=== PATIENT | male | born 1980 | race Caucasian/White ===

== ENCOUNTER 2017-05-08 01:31 | Emergency (ER) | payer SELFPAY ==
[2017-05-08] MEDS ORDERED: EPINEPHrine INJ 0.1 MG/ML 10 ML SYG IV ONE ×6 (01:39→02:33)
[2017-05-08] MEDS ORDERED: SUCCINYLCHOLINE CHLORIDE 200 MG/10 ML VIAL ONE (01:45)
[2017-05-08] MEDS ORDERED: SODIUM CHLORIDE 0.9% 1000ML 1,000 ML IVS ONE ×2 (01:50)
[2017-05-08] MEDS ORDERED: DOPamine PREMIX 250 ML IVPB ONE (01:50)
--- NOTE | 2017-05-08 01:56 | RAD ---
Clinical History : SOB , MAIN Exam : Portable AP view of the chest 05/08/2017 12:00 AM CDT Comparisons : none Findings : There is mild diffuse peribronchial thickening throughout the lungs bilaterally. There is no focal consolidation or pleural effusion.. The heart is normal in size. The mediastinal contours are normal in appearance. The thoracic spine is age appropriate. The shoulders are unremarkable. Limited evaluation of the upper abdomen demonstrates no gross abnormalities. Impression: Peribronchial thickening without focal consolidation, likely representing viral or atypical infectious process versus interstitial edema. Electronically signed by: Soham Olivas MD 05/08/2017 1:54 AM CDT
[2017-05-08] MEDS ORDERED: KETAMINE HCL 100 MG/ML VIAL IV ONE (02:00)
[2017-05-08] MEDS ORDERED: ETOMIDATE INJECTION 2 MG/ML 20ML VIAL IV ONE (02:00)
[2017-05-08] MEDS ORDERED: SODIUM BICARBONATE SYRINGE 50 MEQ/50 ML SYG IV ONE (02:06)
[2017-05-08] MEDS ORDERED: CALCIUM CHLORIDE INJ 100 MG/ML SYG IV ONE (02:07)
--- NOTE | 2017-05-08 03:32 | ED.PDOC ---
History of Present Illness - General Chief Complaint: Chest Pain/NE Stated Complaint: cardiac arrest Time Seen by Provider: 05/08/17 02:53 Source: EMS notes reviewed Exam Limitations: clinical condition - History of Present Illness Initial Comments: the patient is a 36-year-old male presenting to emergency room by EMS. 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 He was awake when EMS arrived. longterm employees reported something like a small seizure when he went down. The patient was pale and diaphoretic. He was flushed in his upper chest and neck. The patient Reported that he needed to go the bathroom. He was short of breath. He was taking a breath and holding it. he was not really complaining of chest pain. By the time the patient arrived here he was confused. His upper chest was red to purple in color but the rest of his body was white. There was no tracheal deviation. Breath sounds were symmetrical. Chest x-ray confirmed no pneumothorax or widening of the mediastinum. No evidence of any hemothorax. The patient did not exhibit any pain with palpation of the abdomen. quick scan with the ultrasound revealed no free fluid in the abdomen. I also saw no significant dilation of the aorta. of significant note, not very far into the second round of CPR it became very difficult to palpate pulses in the extremities and even in the femoral arteries. The patient went from what was a sinus tachycardia on the monitor is to PEA at which point CPR was started. chest x-ray was performed which showed inflated lungs ruling out pneumothorax. it also helped to rule out hemothorax. From the time the patient arrived we were unable to obtain a good pulse oximetry read as the patient's hands were pale and cold. he coded before an ABG to be performed. Respiratory bagged the patient until an endotracheal tube was placed. A 7.5 tube was placed under direct visualization by EMS. End- tidal CO2's were used to confirm placement. Auscultation was used to confirm placement. the patient was easy to ventilate. End-tidal CO2's remained in the 20s for the most part. We were never able to obtain oxygen saturations greater than 60% for any period of time. The patient received numerous rounds of epinephrine. He also received a round of sodium bicarbonate as well as around of calcium chloride empirically. We never did obtain a shockable rhythm. Around 30 minutes into the code I used the color Doppler on the ultrasound and had a very hard time finding arterial pulses during CPR in the femoral arteries. We were never able to obtain palpable pulses in the radials, dorsalis pedis or posterior tibial arteries after the patient coded the second time. Carotid arteries were very difficult to palpate under direct CPR. Initially, after the first 5 minutes of CPR, we did obtain a viable pulse and blood pressure. A dopamine drip was started at that time. Approximately 10 minutes later the patient went back into PEA and we never did obtain a viable pulse or blood pressure after that time. Even during that time when we did have a faintly palpable pulse in his upper extremities his oxygen saturations never went above 70%. After approximately 50 minutes of coding the patient without any sign of improvement, CPR was ceased. Carotid Doppler showed no carotid pulse. Direct visualization with ultrasound of the heart showed no coordinated cardiac motion. Cardiac auscultation did not demonstrate any cardiac activity. The patient had a few agonal respirations and then essentially ceased any signs of life. Pupils are nonreactive. Gag reflexes gone. ET tube was left in place. based upon the patient's clinical presentation and progression, in addition to an elevated troponin, elevated d-dimer, and diffuse ST segment elevations across the entire EKG on EMS's EKG, I believe the patient most likely had something along the lines of a large pulmonary embolus. to his family members have arrived and I discussed the patient's care with them. They did arrive after the patient had already. I did also discuss the patient's presentation and possible cause of with his father over the phone. Questions have been answered. The patient will need an autopsy to definitively confirm cause of . Timing/Duration: 1/2 hour Severity: severe Review of Systems - Review of Systems Review of Systems: 05/08/17 03:32 unable to give secondary toclinical condition Physical Exam - Physical Exam Eye Exam: bilateral normal - initially Ears, Nose, Throat: hearing grossly normal, normal ENT inspection - except mucous membranes are pale Neck: full range of motion - passive. No evidence of trauma. Respiratory: lungs clear, normal breath sounds, other - the patient was in respiratory distress initially. He was moving good air. No wheezes rales or rhonchi. No evidence of chest tenderness initially. Cardiovascular/Chest: no edema, tachycardia, other - pulses in his upper extremities were faint initially and then later on palpable Peripheral Pulses: radial,right: 1+, radial,left: 1+, dorsalis pedis,right: 0, dorsalis pedis,left: 0, posterior tibialis,right: 0, posterior tibialis,left: 0 Gastrointestinal/Abdominal: non tender, soft Rectal Exam: deferred Back Exam: normal inspection Extremity: normal range of motion - passive, no pedal edema, slow capillary refill - extremities are almost white Neurologic: director of land II-XII nml as tested - ifficult to assess further., alert, other - upon the patient's arrival he was markedly confused. Skin Exam: pallor - with the exception of red and purple discoloration around the anterior upper torso and neck Comments: see nursing flow sheet for vitals. We were never able to get persistent oxygen saturations above 70%. The patient was afebrile. The patient was initially breathing [id number] times per minute. Progress - Progress Progress: 05/08/17 03:35 see history of present illness for course of the hospital stay. 05/08/17 03:37 critical care time spent on this patient 45 minutes and CPR 15 minutes in initial evaluation and further evaluation and management after the initial return of circulation. - Results/Orders Results/Orders: Laboratory Tests 05/08/17 05/08/17 05/08/17 01:58 01:58 01:58 WBC 13.5 H RBC 4.03 L Hgb 13.6 L Hct 41.5 L MCV 103.1 H MCH 33.7 H MCHC 32.9 L RDW 14.2 Plt Count 154 MPV 8.6 Absolute Neuts (auto) Not Reportable Absolute Lymphs (auto) Not Reportable Absolute Monos (auto) Not Reportable Absolute Eos (auto) Not Reportable Neutrophils % Not Reportable Neutrophils % (Manual) 36.0 Lymphocytes % Not Reportable Lymphocytes % (Manual) 58.0 Monocytes % Not Reportable Monocytes % (Manual) 5.0 Eosinophils % Not Reportable Basophils % Not Reportable Eosinophils 1.0 Platelet Estimate Normal PT 10.9 INR 0.960 PTT (SP) 24.6 L D-Dimer, Quantitative 423 H* Sodium 143 Potassium 3.7 Chloride 109 Carbon Dioxide 21 Anion Gap 16.7 BUN 13 Creatinine 1.36 H BUN/Creatinine Ratio 9.6 L Random Glucose 176 H Serum Osmolality 289.4 Calcium 9.0 Magnesium 2.4 Creatine Kinase 82 CK-MB (CK-2) 1.9 CK-MB (CK-2) % Not Reportable Troponin I 0.12 H* hest x-ray shows no acute pathology. No pneumothorax. No hemothorax. no widening of mediastinum. The most telling EKG was one of EMS his EKG which showed diffuse ST segment elevation all across the EKG. Are EKG obtained here approximately 7-10 minutes [address] some ST segment depression in anterior leads. Questionable ST segment changes other places. He was still in sinus rhythm but tachycardic. Departure - Departure Clinical Impression: Respiratory failure Qualifiers: Chronicity: acute Respiratory failure complication: hypoxia Qualified Code(s): J96.01 - Acute respiratory failure with hypoxia Disposition: Condition: Poor
[2017-05-08 06:17] VITALS: BP 135/62; TEMP 97.2; O2SAT 67
== END 2017-05-08 02:37 | disposition expired ==
LOC: ER 01:31
DX: J96.01 Acute respiratory failure with hypoxia (principal)
CPT/HCPCS: 31500; 71010; 80048; 82550; 82553; 84484; 85025; 85379; 85610; 85730; 93005; 94770; J1265; J7030